=== PATIENT | female | born 1995 | race Caucasian/White ===

== ENCOUNTER 2017-02-12 18:40 | Emergency (ER) | payer OTHER ==
[~2017-02-12] VITALS: Ht 167.6 cm; Wt 75.0 kg
[2017-02-12 18:51] VITALS: BP 121/85; PULSE 87; RESP 16; O2SAT 99
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
== END 2017-02-12 19:55 | disposition home or self-care (01) ==
LOC: SED 18:40
DX: S01.112A Laceration without foreign body of left eyelid and periocular area, initial encounter (principal); W25.XXXA Contact with sharp glass, initial encounter; Y93.9 Activity, unspecified; Y92.9 Unspecified place or not applicable; Y99.8 Other external cause status; Z88.0 Allergy status to penicillin; Z88.1 Allergy status to other antibiotic agents; Z88.2 Allergy status to sulfonamides